=== PATIENT | female | born 1990 | race Two or more races ===

== ENCOUNTER 2017-05-28 23:41 | Emergency (ER) | payer MEDICAID ==
[~2017-05-28] VITALS: Ht 165.1 cm; Wt 74.8 kg
[2017-05-28 23:41] VITALS: BP 127/75
--- NOTE | 2017-05-29 00:47 | NUR ---
URINE COLLECTED AND SENT TO LAB
--- NOTE | 2017-05-29 02:36 | NUR ---
Patient discharged to home in stable condition. Written and verbal after care instructions given. Patient verbalizes understanding of instruction. PT GIVEN ACI AND PRESCRIPTION, PT TOLD TO NOT DRIVE OR WORK WHILE TAKING NORCO OR FLEXIRLE, PTVERBALIZED UNDERSTANDING AND WALKED OUT OF THE ER WITH A STEADY GAIT, PT STATES SHE WILL UBER HOME AND NOT DRIVE.
== END 2017-05-29 02:38 | disposition home or self-care (01) ==
LOC: ER 23:41
DX: S29.012A Strain of muscle and tendon of back wall of thorax, initial encounter (principal); T23.009A Burn of unspecified degree of unspecified hand, unspecified site, initial encounter; F17.200 Nicotine dependence, unspecified, uncomplicated; V89.2XXA Person injured in unspecified motor-vehicle accident, traffic, initial encounter; Y93.89 Activity, other specified; Y92.488 Other paved roadways as the place of occurrence of the external cause; Y99.8 Other external cause status
CPT/HCPCS: 73130-TC; 84703-TC; A4606; Q0162; Z7610

== ENCOUNTER 2017-06-03 09:54 | Emergency (ER) | payer MEDICAID ==
[~2017-06-03] VITALS: Ht 167.6 cm; Wt 68.0 kg
[2017-06-03 10:07] VITALS: BP 134/77
== END 2017-06-03 10:47 | disposition home or self-care (01) ==
LOC: ER 09:55
DX: S09.90XA Unspecified injury of head, initial encounter (principal); R51 Headache; F17.200 Nicotine dependence, unspecified, uncomplicated; V89.2XXA Person injured in unspecified motor-vehicle accident, traffic, initial encounter; Y93.89 Activity, other specified; Y92.89 Other specified places as the place of occurrence of the external cause; Y99.9 Unspecified external cause status
CPT/HCPCS: 70450-TC; A4606; Z7610

== ENCOUNTER 2023-07-24 16:30 | Emergency (ER) | payer MEDICAID ==
[~2023-07-24] VITALS: Ht 165.1 cm; Wt 74.8 kg
[2023-07-24] MEDS ORDERED: NAPROXEN 250 MG TABLET PO ONE (17:00)
[2023-07-24] MEDS ORDERED: ACETAMINOPHEN ES 500 MG TABLET PO ONE (17:00)
[2023-07-24] MEDS ORDERED: NAPROXEN 250 MG TABLET ONE (17:39)
[2023-07-24] MEDS ORDERED: ACETAMINOPHEN ES 500 MG TABLET ONE (17:39)
[2023-07-24 18:53] VITALS: BP 121/97; TEMP 98.7; O2SAT 100
== END 2023-07-24 18:53 | disposition home or self-care (01) ==
LOC: ER 16:48
DX: S02.2XXA Fracture of nasal bones, initial encounter for closed fracture (principal); F17.200 Nicotine dependence, unspecified, uncomplicated; S06.9XAA Unspecified intracranial injury with loss of consciousness status unknown, initial encounter; Y04.2XXA Assault by strike against or bumped into by another person, initial encounter; Y93.89 Activity, other specified; Y92.89 Other specified places as the place of occurrence of the external cause; Y99.8 Other external cause status
CPT/HCPCS: 70160-TC